=== PATIENT | male | born 1955 | race Caucasian/White ===

== ENCOUNTER 2017-11-12 04:29 | Inpatient (IN) | payer OTHER ==
[~2017-11-12] VITALS: Ht 180.3 cm; Wt 86.2 kg
[2017-11-19] MEDS ORDERED: VASOTEC10 MG PO (15:12)
== END 2017-11-19 16:18 | disposition home or self-care (01) | DRG 440 ==
LOC: ER 04:29 → MEDI 09:17 → SEC-K 09:17 → MEDI 11:13
PROC: 4A033R1 Measurement of Arterial Saturation, Peripheral, Percutaneous Approach (ICD-10-PCS; principal; 2017-11-12)
PROC: BF37ZZZ Magnetic Resonance Imaging (MRI) of Pancreas (ICD-10-PCS; 2017-11-12)
PROC: BW40ZZZ Ultrasonography of Abdomen (ICD-10-PCS; 2017-11-12)
PROC: 3E0336Z Introduction of Nutritional Substance into Peripheral Vein, Percutaneous Approach (ICD-10-PCS; 2017-11-14)
PROC: BF37ZZZ Magnetic Resonance Imaging (MRI) of Pancreas (ICD-10-PCS; 2017-11-16)
DX: K85.80 Other acute pancreatitis without necrosis or infection (principal); I10 Essential (primary) hypertension; Z53.09 Procedure and treatment not carried out because of other contraindication; M10.09 Idiopathic gout, multiple sites; K80.80 Other cholelithiasis without obstruction

== ENCOUNTER 2017-12-14 07:07 | Outpatient (CLI) | payer OTHER ==
[~2017-12-14 07:07] MED LIST: VASOTEC10 MG PO
== END 2017-12-14 07:16 | disposition home or self-care (01) ==
LOC: MRI 07:07
DX: K80.50 Calculus of bile duct without cholangitis or cholecystitis without obstruction (principal)
CPT/HCPCS: 74181

== ENCOUNTER 2018-01-08 07:01 | Day surgery (SDC) | payer OTHER ==
[2018-01-08] MEDS ORDERED: PERCOCET 5-3251 EACH PO (10:05)
== END 2018-01-08 14:30 | disposition home or self-care (01) ==
LOC: CIR.AMB 07:01
DX: K80.10 Calculus of gallbladder with chronic cholecystitis without obstruction (principal)

== ENCOUNTER 2018-04-19 11:45 | Outpatient (CLI) | payer OTHER ==
[~2018-04-19 11:45] MED LIST changes: +PERCOCET 5-3251 EACH PO
== END 2018-04-19 16:35 | disposition home or self-care (01) ==
LOC: SONOGRAMA 11:45
DX: M10.9 Gout, unspecified (principal)

== ENCOUNTER 2021-12-06 09:17 | Outpatient (CLI) | payer OTHER | END 2021-12-06 09:18 | disposition home or self-care (01) | LOC: NUCLEAR 09:17 | PROVIDERS: ATTEND Internal Medicine | DX: I11.9 Hypertensive heart disease without heart failure (principal) ==

== ENCOUNTER 2022-06-04 09:58 | Outpatient (CLI) | payer OTHER | END 2022-06-04 10:02 | disposition home or self-care (01) | LOC: NUCLEAR 09:58 | PROVIDERS: ATTEND Internal Medicine | DX: I73.9 Peripheral vascular disease, unspecified (principal); I87.9 Disorder of vein, unspecified ==

== ENCOUNTER 2022-06-16 08:05 | Outpatient (CLI) | payer OTHER | END 2022-06-16 08:06 | disposition home or self-care (01) | LOC: NUCLEAR 08:05 | PROVIDERS: ATTEND Internal Medicine | DX: I73.9 Peripheral vascular disease, unspecified (principal); I87.9 Disorder of vein, unspecified ==